=== PATIENT | female | born 1975 | race African-American/Black ===

== ENCOUNTER 2017-05-16 08:29 | Emergency (ER) | payer OTHER ==
[~2017-05-16] VITALS: Ht 170.2 cm; Wt 105.7 kg
[~2017-05-16 08:29] MED LIST: ASPIR-LOW81 MG PO; BREO ELLIPTA I1 EACH IH; CLEOCIN150 MG PO; CLOMIPRAMINE HC50 MG PO; FLONASE16 G1 BOTH NARES; HYDROCHLOROTH12.5 M3 PO; IBUPROFEN800 MG PO; MOTRIN600 MG PO; NABUMETONE500 MG PO; PAXIL20 MG PO; SENNA LAXATIVE8.6 MG PO; TENORMIN50 MG PO; TRAZODONE HCL50 MG PO; VENTOLIN HFA18 GM IH; ZYRTEC10 M3 PO
[2017-05-16 09:00] LABS: HEMATOCRIT 37.7 % (36.0-46.0); MCH 26.9 PG (29.0-34.0); MCHC 31.8 G/DL (30.0-36.0); MCV 84.5 FL (83-99); MEAN PLAT.VOLUME 10.1 uM^3 (9.5-12.4); PLATELET COUNT 342 K/uL (156-360); RBC DIS.WIDTH-CV 16.7 % (11.8-14.6); RBC DIS.WIDTH-SD 52.1 % (39-53); RED BLOOD COUNT 4.46 M/uL (3.80-5.20); WHITE BLOOD COUNT 4.1 K/uL (4.1-10.2)
[2017-05-16 09:10] LABS: CHLORIDE 110 mEq/L (99-109); POTASSIUM 3.5 mEq/L (3.7-5.4); SODIUM 139 mEq/L (136-147)
[2017-05-16 09:12] LABS: GLUCOSE 91 mg/dL (70-99)
[2017-05-16 09:13] LABS: ANION GAP 6 MEQ/L (2-14)
[2017-05-16 09:14] LABS: TOTAL BILIRUBIN 0.3 mg/dL (0.0-1.0)
[2017-05-16 09:16] LABS: ALKALINE PHOSPHATASE 84 IU/L (3-129); GFR ESTIMATE (CALCULATED) > 59 mL/min/
[2017-05-16 09:17] LABS: UREA NITROGEN (BUN) 21 mg/dL (9-23)
[2017-05-16 09:26] LABS: QUANTITATIVE HCG < 4.0 MIU/ML
[2017-05-16 09:57] LABS: ADD MIUA? YES; BILIRUBIN NEGATIVE; BLOOD LARGE; COLOR YELLOW ((YELLOW)); GLUCOSE (STRIP) NEGATIVE; KETONES NEGATIVE; LEUKOCYTES NEGATIVE; NITRITE NEGATIVE; PROTEIN (STRIP) 100; SPECIFIC GRAVITY 1.021 (1.000-1.030); UROBILINOGEN 0.2 MG/DL (0.2-1.0)
[2017-05-16 10:04] LABS: BACTERIA RARE /HPF; CALCIUM OXALATE CRYSTALS 4+ /HPF; EPITHELIAL CELLS 3+ /HPF; MUCUS NONE SEEN /LPF; RED BLOOD CELLS TNTC /HPF (0-5); UCUL ADDED? NO
[2017-05-16] MEDS ORDERED: ANTIVERT25 MG PO (13:25)
[2017-05-16 14:29] VITALS: BP 141/97
== END 2017-05-16 14:31 | disposition home or self-care (01) ==
LOC: EME 08:29
DX: R42 Dizziness and giddiness (principal); J45.909 Unspecified asthma, uncomplicated; I10 Essential (primary) hypertension; F17.200 Nicotine dependence, unspecified, uncomplicated
CPT/HCPCS: 80053; 81003; 84702; 85027; 93005; 99281; 99285; J2405; J7030